=== PATIENT | male | born 1975 | race Caucasian/White ===

== ENCOUNTER → 2018-11-02 15:17 | Outpatient (CLI) | payer MEDICARE, SELFPAY ==
--- NOTE | 2018-11-02 08:30 | CYST_PTH ---
PATIENT: JACKIE HUDDLESTON LOC: [facility] U#:[id number] AGE/SX: 49/M ROOM: RE11/02/[address]: Dr. Kunal Nunn MD : [id number] BED: DIS: SPEC #: [id number] RECD: 11/02/18 15:16 STATUS: JESSIE ALVIN #: [id number] KAVON: 11/02/18 08:[address]: Kunal Nunn DEPT: SURGICAL PATHOLOGY RECD BY: Raz Edwards ENTERED: 11/03/18 10:18 SP TYPE: Cyst OTHR DR: [facility] Tissues: A - CYST B - CYST Procedures: Surgery Specimen Level III HEADER OPERATION: Excision of right upper eyelid cyst; excision of right cheek cyst PRE-OP DIAGNOSIS: Sebaceous cyst right eyelid and right cheek TISSUE SUBMITTED: A - Right cheek cyst, B - Right eyelid cyst MICROSCOPIC DIAGNOSIS A. Cyst of right cheek, excision: Epidermal inclusion cyst. B. Cyst of right eyelid, excision: Epidermal inclusion cyst. AM:nelson 11/04/18 MICROSCOPIC DESCRIPTION Slides are reviewed. GROSS DESCRIPTION A - Received in fixative is one container labeled with the patient's name and designated right cheek cyst. The specimen consists of a piece of knowles-white skin with underlying tissue. The underlying tissue consists of a cyst measuring 0.5 x 0.5 x 0.3 cm. The overlying skin piece measures 0.7 x 0.2 cm. The specimen is inked, bisected and submitted entirely in one cassette. B - Received in fixative is one container labeled with the patient's name and designated right eyelid cyst. The specimen consists of a piece of knowles-white skin with underlying cyst. The cyst measures 1 x 1 x 0.5 cm and the skin piece measures 1 x 0.2 cm. The cyst appears to be partially ruptured and contains knowles-white cheesy material. The specimen is bisected and submitted entirely in one cassette. / SJ:nelson 11/03/18 TC:5 CPT: 42786 x2
[2018-11-02 09:02] VITALS: BMI 21.4
== END ==
PROVIDERS: Referring Provider Surgery; Visit Provider Surgery
DX: H02.821 Cysts of right upper eyelid (principal); L72.3 Sebaceous cyst
CPT/HCPCS: 88304

== ENCOUNTER 2019-02-01 19:10 | Emergency (ER) | payer MEDICARE, SELFPAY ==
[2018-11-02 09:02] VITALS: BMI 21.4
[2019-02-01 19:11] VITALS: BP 126/72; PULSE 94; RESP 17; RESP 18; TEMP 37.2; O2SAT 95; BMI 22.9
[2019-02-01 20:20] VITALS: PULSE 81; RESP 15; O2SAT 96
--- NOTE | 2019-02-01 20:20 | ED.VIS.GEN ---
History of Present Illness Chief Complaint: Ear Problem Narrative: Patient is a 43-year-old male who presents with right ear pain and swelling. He initially noted some irritation about 2-1/2 to 3 days ago. He put some hydrogen peroxide on his ear and he states it fizzed immediately. Today he has had some scabbing of the upper ear. Feels like his whole face is swollen. No fevers nausea vomiting. He is not diabetic. Past Medical History - Allergies and Home Meds Allergies/Adverse Reactions: Allergies amoxicillin Allergy (Verified 02/01/19 19:11) Anaphylaxis Penicillins [PCN] Allergy (Verified 02/01/19 19:11) Anaphylaxis Primary Care Physician: Care Physician,No Primary [Primary Care Provider] - Past Medical History: None Smoking Status: Current every day smoker Review of Systems All systems negative except as indicated General: Denies: Fever ENT: Reports: Right ear pain Cardiovascular: Denies: Chest pain Respiratory: Denies: Dyspnea Gastrointestinal: Denies: Nausea, Vomiting Physical Exam Vital Signs/Narrative: Vital Signs Temp Pulse Resp BP Pulse Ox 02/01/19 19:11 99.0 F 94 17 126/72 H 95 Inital Vital Signs reviewed: Yes General: Well nourished Head: Normocephalic Eyes: EOMI ENT: Moist mucous membranes, - - The upper portion of the right pinna is scabbed with some surrounding erythema and soft tissue swelling consistent with cellulitis. Cardiovascular: Regular rate Respiratory: No distress Skin: Normal color Neurological: Alert Psychological: Normal affect Diagnostic/Tx/Re-eval - Medical Decision Making Patient is clinically well-appearing. He will be started on oral antibiotics, we will treat with doxycycline. He understands to return for new or worsening symptoms. Patient discharged home. ED Disposition - Plan for ED Patient: Disposition: Home or Assisted Living Diagnosis: Cellulitis of right ear Instructions: CELLULITIS, Facial Prescriptions: Doxycycline 100 mg PO BID #20 cap Prescription Printed Referrals: Care Physician,No Primary [Primary Care Provider] -
== END 2019-02-01 20:39 | disposition home or self-care (01) ==
PROVIDERS: Emergency Provider Emergency Medicine
DX: H60.11 Cellulitis of right external ear (principal); F17.200 Nicotine dependence, unspecified, uncomplicated
CPT/HCPCS: 99282

== ENCOUNTER 2019-03-12 16:41 | Emergency (ER) | payer MEDICARE, SELFPAY ==
[2019-03-12] VITALS (7 sets, daily range): BP systolic 107–145; BP diastolic 68–96; PULSE 80–114; RESP 15–25; TEMP 37.2–37.3; O2SAT 94–99; BMI 25.0
--- NOTE | 2019-03-12 17:05 | EKG12_ITS ---
Test Reason : EXTREMITY PAIN Blood Pressure : / mmHG Vent. Rate : 086 BPM Atrial Rate : 086 BPM P-R Int : 140 ms QRS Dur : 078 ms QT Int : 348 ms P-R-T Axes : 064 060 070 degrees QTc Int : 416 ms Normal sinus rhythm Minimal voltage criteria for LVH, may be normal variant Borderline ECG Confirmed by KAITLIN FRANK, KAYLEIGH ([id number]), video editor NAT RINCON ([id number]) on 03/13/2019 2:55:23 PM Referred By: SHANEL Confirmed By:KAYLEIGH MADRIGAL MD
--- NOTE | 2019-03-12 17:09 | ED.VISSUMM ---
- ER Visit Summary Date of Service: 03/12/19 Chief Complaint: Left lower lateral rib cage pain History of Present Illness: The patient is a 43 M prior kidney stone. He says this does not feel like his prior kidney stones. States around 3 AM this morning he was woken up from sleep with left lower lateral rib cage pain. Denies any falls injury or trauma. He does not feel short of breath. It is worse with movement or taking a deep breath. He is never had a DVT or PE. He is never had a pneumothorax. He denies any other symptoms. No fever no chills. No nausea no vomiting no diarrhea or dysuria. Physical Examination: Middle-aged male no acute distress vital signs are stable afebrile. He does not look septic or toxic. Pulse ox 9 9% room air no signs of hypoxia. H EENT exam unremarkable smell of tobacco on his breath. Neck nontender no JVD. Lungs clear to auscultation bilaterally. Heart regular rhythm rate about 100 no murmur. Chest wall mild left lower rib cage tenderness. No ecchymosis or bruising no subcu air crepitance no signs of trauma. Abdomen is soft and nontender normal bowel sounds no peritoneal signs. Patient is moving all 4 extremities. Neurovascular intact. Calves are nontender without edema or cords. Neurologically is awake and alert with no focal motor deficits. Back and spine are nontender. Skin is unremarkable. Test Results: EKG showed a sinus rhythm rate of 86 with LVH but no acute signs of TN or ischemia. CBC normal white count 11. Hemoglobin 13. No bands. Chemistries normal normal creatinine gap. Troponin normal. UA 5-10 white cells 5-10 epithelial cells is contaminated no nitrates or bacteria. Chest x-ray 2 views read by myself and radiologist shows no acute abnormality. Normal cardiac silhouette. No bony abnormalities. No pneumothorax. No infiltrate. Due to the sudden onset of his symptoms I did obtain a d-dimer it was elevated 2.75 so a CTA of his chest was obtained. No PE was seen. Heart and lungs were basically unremarkable. On the lower end of the CTA there may be some enlargement of the spleen. I did go over all test results with patient multiple abdominal exams have been benign he denies any abdominal pain. Instructed follow-up with primary care physician. Emergency Department Course and Treatment: Pt. with atypical left-sided rib pain. Will undergo cardiac work-up. Will be given IV Toradol for pain. Repeat exam his abdomen is been benign the entire time. Abdomen is nontender, nondistended without any peritoneal signs. He did get relief with Toradol. His exam is really not changed and he has reproducible left lateral lower rib cage pain. Given to [place] for pain prior to discharge. Treatment Plan: Tylenol and/or Motrin for pain. Follow-up with a primary care physician. Disposition: Discharge Impression: Left-sided atraumatic rib cage pain of uncertain etiology This note was generated with [employer] dictation software. It may contain incorrect words, spelling, and punctuation that were not noted in review of the chart prior to signing ED Disposition - Plan for ED Patient: Disposition: Home or Assisted Living Instructions: FLANK PAIN, Uncertain Cause Referrals: Car Davidson MD [STAFF PHYSICIAN] - As soon as possible Additional Instructions: Your labs, blood work and CAT scan today were really non-diagnostic for any specific cause your pain. Tylenol Motrin for pain. Follow-up with a local primary care physician or return if worse.
[2019-03-12] MEDS: Ketorolac 30 MG/ML Syringe IV (17:29)
--- NOTE | 2019-03-12 17:31 | RAD_ITS ---
STUDY: X-RAY CHEST REASON FOR EXAM: Male, 43 years old. Cough. Pain. TECHNIQUE: Frontal view of the chest COMPARISON: None. FINDINGS: There are subcentimeter calcified granulomas are noted in the lungs. The lungs are otherwise clear. There are no pleural effusions. There is no pneumothorax. The heart is normal in size. The visualized osseous structures are within normal limits. RAD/Chest PA and Lateral IMPRESSION: No acute thoracic pathology. Electronically Signed: Monico Wheeler, at 18:01 EST Tel , Service support ,
[2019-03-12 17:34] LABS: Bacteria 0 SEEN /hpf (None Seen); Red Blood Cells-Urine 0 SEEN /hpf (0-5)
[2019-03-12 17:38] LABS: Absolute Neutrophil Count 8.3 X10^3/uL (2.0-7.7); Basophil# 0.01 X10^3/uL; Basophil% 0.1 % (0-1); Eosinophils% 0.9 % (0-5); Lymphocyte % 18.9 % (19-41); Mean Corp Hgb Conc 32.5 g/dL (32-36); Mean Corpuscular Hgb 30.5 pg (27.0-32.0); Mean Corpuscular Volume 93.9 fL (80-94); Mean Platelet Vol. 11.8 fl (6.2-12.0); Monocyte# 0.53 X10^3/uL; Monocyte% 4.8 % (0-10); NRBC Flagged by Analyzer 0 % (0-5); Neutrophil % 74.8 % (47-70); Platelet Count 104 K/mm3 (150-450); RBC Distribution Width CV 12.9 % (11.6-14.6); RBC Distribution Width SD 44.3 fl (35.1-43.9); Red Blood Count 4.26 M/mm3 (4.6-6.2); White Blood Count 11.1 K/mm3 (4.4-11.0)
[2019-03-12 17:39] LABS: Color, Urine Yellow (Yellow); Glucose, Dipstick Normal (Normal); Ketone-Dipstick Negative (Negative); Leukocyte Esterase-Dipstick 100 /ul (Negative); Nitrite-Dipstick Negative (Negative); Occult Blood-Urine Negative /ul (Negative); Protein-Dipstick Negative (Negative); Urine Bilirubin Dipstick Negative (Negative); Urine Clarity Clear (Clear); Urine Urobilinogen Normal (Normal)
[2019-03-12 17:44] LABS: Squamous Epithelial Cells - UA 5-10 SEEN /hpf (0-5); White Blood Cells 5-10 SEEN /hpf (0-5)
[2019-03-12 17:45] LABS: Mucous, Urine 2+ /hpf (<or=2+)
[2019-03-12 17:54] LABS: Anion Gap 5 (5-15); BUN 9 mg/dL (7-18); BUN/Creat Ratio 8.8 RATIO (10-20); Calcium,Total 9.1 mg/dL (8.5-10.1); Chloride 106 mmol/L (98-107); Creatinine, Serum 1.02 mg/dL (0.70-1.30); EST Glomerular Filtration Rate 85 mL/min (>60); Est Glom Filt Rate - Afr Amer 103 mL/min (>60); Estimated Creatinine Clearance 107.71 ml/min; Glucose 91 mg/dL (74-106); Potassium 4.2 mmol/L (3.5-5.1); Sodium Level 139 mmol/L (136-145)
[2019-03-12 20:49] LABS: D-Dimer Quantitative (DVT/PE) 2.75 FEU/ug/m (0.27-0.49)
--- NOTE | 2019-03-12 20:49 | ED.RN ---
CRITICAL D-DIMER RESULT CALLED PER LAB. PRIMARY RN AND MD NOTIFIED.
--- NOTE | 2019-03-12 20:54 | CT_ITS ---
HISTORY: LEFT CP/ELEV DDIMER TECHNIQUE: Helically acquired images were obtained of the chest following the intravenous administration of 100ML ml of Isovue 370 Iodinated contrast. as per pulmonary angiogram protocol with 2D MIP reconstructions. A radiation dose optimization technique was used for this scan. COMPARISON: Chest x-ray from 4 hours earlier FINDINGS: # of images incl. paperwork: [id number] Lungs are clear but for significant dependent bilateral atelectasis. Several benign bilateral calcified granulomas. No effusions. Within the thoracic spinebony alignment is normal. Vertebral body height is normal. Facets are well aligned. No rib lesions are perceived. Heart is not enlarged. Thoracic aorta is normal. No aneurysms, stenoses, dissections, nor occlusions. 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 Is a normal anatomic variant. 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 This causes for some right chest wall and some paracervical and paravertebral collaterals of the blood and contrast returning from the right arm injection to the heart. It is difficult to deceit perceive whether this is a true stenosis in the vessel, or 1 evoked by patient arm abduction for imaging and injection. The contrast bolus is optimized more for the pulmonary veins and the thoracic aorta than it is for the pulmonary arteries, however, I believe it is still diagnostic. No pulmonary emboli are perceived. There are some calcified benign lymph nodes within the mediastinum and leila I perceived hepatosplenomegaly. Although the liver and spleen are not completely imaged. Gallbladder remains. Stomach is distended with gas and liquid and food. The adrenal glands are incompletely imaged but not enlarged. CT/CTA Chest W/WO Contrast IMPRESSION: No pulmonary embolism, aortic aneurysm, or aortic dissection. Basilar atelectasis. Granulomatous disease. Possible stenosis within the right subclavian vein between the right first rib and the right clavicle due to collateral vessels filling with the contrast bolus. Additionally this could be an evoked stenosis due to patient arm abduction. Individualized dose optimization techniques were used for this CT. at 2217 Reported and signed by: Lance Lopez MD Electronically Signed: Lance Lopez MD at 22:16 EST Tel , Service support ,
--- NOTE | 2019-03-12 22:24 | ED.DEP ---
ED Disposition - Plan for ED Patient: Disposition: Home or Assisted Living Instructions: FLANK PAIN, Uncertain Cause Referrals: Car Davidson MD [STAFF PHYSICIAN] - As soon as possible Additional Instructions: Your labs, blood work and CAT scan today were really non-diagnostic for any specific cause your pain. Tylenol Motrin for pain. Follow-up with a local primary care physician or return if worse.
[2019-03-12] MEDS: HYDROcodone Bitartrate/Apap 5/325 Tablet PO (22:40)
== END 2019-03-12 22:45 | disposition home or self-care (01) ==
PROVIDERS: Emergency Provider Emergency Medicine
DX: R07.81 Pleurodynia (principal); F17.200 Nicotine dependence, unspecified, uncomplicated
CPT/HCPCS: 71046; 71275; 80048; 81001; 84484; 85025; 85379; 93005; 96374; 99285; Q9967; A4216